=== PATIENT | male | born 1960 | race Caucasian/White ===

== ENCOUNTER 2017-10-07 07:58 | Emergency (ER) | payer BC ==
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
[2017-10-07 10:21] VITALS: BP 139/89
== END 2017-10-07 10:21 | disposition home or self-care (01) ==
DX: M54.2 Cervicalgia (principal); F17.200 Nicotine dependence, unspecified, uncomplicated

== ENCOUNTER → 2018-09-01 | Outpatient (CLI) | payer BC | LOC: FIMAGING 13:22 | PROVIDERS: ATTEND Family Medicine | DX: R22.41 Localized swelling, mass and lump, right lower limb (principal) ==

== ENCOUNTER → 2018-09-06 | Outpatient (CLI) | payer BC ==
[~2018-09-06] MED LIST: GADOBUTROL 10 ML VIAL IVP ONE
== END ==
LOC: FIMAGING 06:37
PROVIDERS: ATTEND Family Medicine
DX: R22.41 Localized swelling, mass and lump, right lower limb (principal)
CPT/HCPCS: A9585

== ENCOUNTER → 2018-10-07 | Outpatient (CLI) | payer BC ==
[~2018-10-07] MED LIST changes: +BUPIVACAINE 0.25% 30 ML SDV ONE; -GADOBUTROL 10 ML VIAL IVP ONE; +LIDOCAINE 1% 300 MG/30 ML SDV ONE
== END ==
LOC: FIMAGING 13:30
PROVIDERS: ATTEND Orthopaedic Surgery
PROC: 0KB Muscles, Excision (ICD-10-PCS; principal; 2018-10-07)
DX: D36.10 Benign neoplasm of peripheral nerves and autonomic nervous system, unspecified (principal)